=== PATIENT | male | born 1990 | race Two or more races ===

== ENCOUNTER 2017-07-22 15:07 | Emergency (ER) | payer SELFPAY ==
[2017-07-22] MEDS ORDERED: PENICILLIN G BENZATHINE LA 600,000 UNIT/ML DISP.SYRIN. IM (16:45)
== END 2017-07-22 17:00 | disposition home or self-care (01) ==
LOC: ER 17:00
DX: L73.9 Follicular disorder, unspecified (principal)
CPT/HCPCS: 99283